=== PATIENT | male | born 1960 | race African-American/Black ===

== ENCOUNTER 2016-05-27 01:48 | Emergency (ER) ==
[2016-05-27 01:55] VITALS: BP 165/90
[2016-05-27] MEDS ORDERED: MOTRIN PO ONE (02:17)
[2016-05-27] MEDS ORDERED: PHENERGAN WITH CODEINE LIQUID PO ONE (02:17)
--- NOTE | 2016-05-27 02:18 | PROVIDER DOCUMENTATION ---
HPI-Respiratory General - General Chief Complaint: Cold Symptoms Stated Complaint: CONGESTED, BODY ACHE, DIARRHEA Time Seen by Provider: 05/27/16 02:15 Source: patient Allergies/Adverse Reactions: Patient Allergies Allergy/AdvReac Type Severity Reaction Status Date / Time Penicillins Allergy Severe ANAPHYLAXIS Verified 05/27/16 01:59 - History of Present Illness-Resp Nature of Presenting Problem: pt states he starting feeling sick yesterday around noon. He has a stuffy runny nose, sore throat and a hacky dry painful cough. No SOB, or wheezing. No fever or body aches. Rest of household has similar symptoms Review of Systems - Adult - REVIEW OF SYSTEMS - ADULT Constitutional: denies: fever Eyes: denies: discharge Ears, Nose, Mouth & Throat: reports: ear pain, sinus problem, throat pain. denies: hoarseness Cardiovascular: denies: chest pain Respiratory: reports: cough. denies: excessive sputum production, pleurisy, shortness of breath, wheezing Gastrointestinal: reports: diarrhea. denies: abdominal pain, nausea, vomiting Genitourinary: denies: dysuria, frequency, flank pain Musculoskeletal: denies: muscle aches Integumentary: denies: rash Neurological: denies: headache/migraines All Other Systems: Reviewed and Negative Past History - Adult - PAST MEDICAL HISTORY-ADULT Review of Records: reports: Old Records Reviewed, Nursing Assessment Review, Medications Reviewed, Social history reviewed & non-contributory. Major Childhood Illnesses: reports: denies history Cardiovascular: reports: HTN Respiratory: reports: denies history Gastrointestinal: reports: denies history Obstetrical/Gynecological: reports: denies history Genitourinary: reports: denies history Musculoskeletal: reports: neck/back injury Neurological: reports: denies history Endocrine/Immune: reports: thyroid disorder Other Conditions: reports: denies history - PRIOR SURGERIES/PROCEDURES Surgical/Procedure History: reports: cholecystectomy - IMMUNIZATION STATUS Childhood Immunizations: UTD Flu Vaccine: See Nurse Assessment - FAMILY HISTORY Family History: reviewed, not pertinent Physical Exam-General - PHYSICAL EXAM-ADULT Initial Vital Signs Reviewed: Yes - CONSTITUTIONAL General Appearance: appears well, alert, no apparent distress - EYES Eyes: pink conjunctivae - HEAD, EARS, NOSE, MOUTH & THROAT HENMT: TMs normal, pharynx normal - NECK Neck: non-tender, full range of motion, supple, normal inspection - RESPIRATORY Respiratory: chest non-tender, lungs clear, normal breath sounds, no pleuratic chest pain, no respiratory distress, no accessory muscle use - CARDIOVASCULAR Cardiovascular: regular rate, rhythm, no murmur - SKIN Integumentary: normal color, normal turgor, warm/dry - NEUROLOGIC Neurologic: grossly normal, no motor/sensory deficits - PSYCHIATRIC Psych/Mental Status: normal mood/affect, normal thought content, normal thought process, oriented x 3 Progress - PLAN OF CARE/RESULTS Progress/Plan/Lab Results: Orders Category Date Time Status INFLUENZA SCREEN A/B Stat Lab 05/27/16 01:55 Ordered Codeine/Promethazine [Phenergan with Codeine Liquid] Med 05/27/16 02:17 Discontinued 10 ml PO NOW ONE Ibuprofen [Motrin] Med 05/27/16 02:17 Discontinued 800 mg PO NOW ONE Vital Signs Temp Pulse Resp BP Pulse Ox 05/27/16 01:51 97.6 F 102 H 20 165/90 96 Penicillins Allergy (Severe, Verified 05/27/16 01:59) ANAPHYLAXIS Codeine/Promethazine [Phenergan with Codeine] 10 ml PO TID PRN PRN #120 ml 05/27 Ibuprofen [Motrin] 800 mg PO Q8H PRN PRN #30 tablet 05/27/16 Ipratropium 0.06% Nasal [place] [Atrovent 0.06% Nasal [place]] 2 spray NINI TID PRN # 1 bottle 05/27/16 Departure - Departure Time of Disposition Order: 02:18 DIAGNOSIS: URI (upper respiratory infection) Qualifiers: URI type: unspecified viral URI Qualified Code(s): J06.9 - Acute upper respiratory infection, unspecified Disposition: HOME 01 Certified Medical Emergency: Emergent Condition: Good Prescriptions: Ipratropium 0.06% Nasal [place] [Atrovent 0.06% Nasal [place]] 2 spray NINI TID PRN # 1 bottle PRN Reason: Congestion Ibuprofen [Motrin] 800 mg PO Q8H PRN PRN #30 tablet PRN Reason: Pain Codeine/Promethazine [Phenergan with Codeine] 10 ml PO TID PRN PRN #120 ml PRN Reason: Cough Referrals: None,PCP [Primary Care Provider] -
== END 2016-05-27 02:36 | disposition home or self-care (01) ==
LOC: ED 01:48
DX: J06.9 Acute upper respiratory infection, unspecified (principal); R09.89 Other specified symptoms and signs involving the circulatory and respiratory systems; J02.9 Acute pharyngitis, unspecified; H92.09 Otalgia, unspecified ear; R05 Cough; R19.7 Diarrhea, unspecified; I10 Essential (primary) hypertension; E07.9 Disorder of thyroid, unspecified
CPT/HCPCS: 87804; 99283